=== PATIENT | female | born 1950 | race Caucasian/White ===

== ENCOUNTER 2019-11-18 10:28 | Outpatient (CLI) | payer MEDICARE, SELFPAY ==
--- NOTE | ~2019-11-18 | MM_ITS ---
EXAMINATION: MM screening [facility] w [facility] HISTORY: Screening TECHNIQUE: Craniocaudal and mediolateral oblique 3-D tomosynthesis images were obtained and synthetic 2-D images were generated. CAD analysis was submitted and interpreted. COMPARISON: Comparison to multiple prior studies sequentially, with oldest reviewed study dated 06/2013. BREAST PARENCHYMAL COMPOSITION: There are scattered areas of fibroglandular density. FINDINGS: There is no evidence of suspicious mass, calcification, or architectural distortion to sugg est malignancy in either breast. There has been no suspicious interval change. IMPRESSION: 1. No mammographic evidence of malignancy. 2. Recommend routine screening mammography in one year. BI-RADS Category 1: Negative Reviewed, dictated and finalized at location A.
== END 2019-11-18 10:29 | disposition home or self-care (01) ==
PROVIDERS: PCP Family Medicine; Visit Provider Obstetrics & Gynecology
DX: Z12.31 Encounter for screening mammogram for malignant neoplasm of breast (principal)
CPT/HCPCS: 77063; 77067

== ENCOUNTER 2020-11-23 10:48 | Outpatient (CLI) | payer MEDICARE, SELFPAY ==
--- NOTE | ~2020-11-23 | MM_ITS ---
EXAMINATION: MM screening [facility] BI w talita HISTORY: Screening mammogram TECHNIQUE: Craniocaudal and mediolateral oblique 3-D tomosynthesis images were obtained and synthetic 2-D images were generated. CAD analysis was submitted and interpreted. COMPARISON: 11/18/2019, 11/03/2018, 10/28/2017 BREAST PARENCHYMAL COMPOSITION: There are scattered areas of fibroglandular density. FINDINGS: There is no evidence of suspicious mass, calcification, or architectural distortion to sugg est malignancy in either breast. There has been no suspicious interval change. IMPRESSION: 1. No mammographic evidence of malignancy. 2. Recommend routine screening mammography in one year. BI-RADS Category 1: Negative Reviewed, dictated and finalized at location A.
== END 2020-11-23 10:49 | disposition home or self-care (01) ==
LOC: ANHIMG 10:51
PROVIDERS: PCP Family Medicine; Visit Provider Obstetrics & Gynecology
DX: Z12.31 Encounter for screening mammogram for malignant neoplasm of breast (principal)
CPT/HCPCS: 77063; 77067

== ENCOUNTER 2021-04-07 16:03 | Emergency (ER) | payer MEDICARE, SELFPAY ==
[2021-04-07 16:15] VITALS: BP 178/66; PULSE 97; RESP 16; TEMP 36.7; O2SAT 99
--- NOTE | 2021-04-07 17:53 | PC.NURSE ---
1753-pt at intake desk stating she is going to leave. Pt ambulated out of ED with steady gait. no distress noted.
== END 2021-04-07 18:54 | disposition left against medical advice (07) ==
LOC: ANHED 18:33
DX: M25.561 Pain in right knee (principal)
CPT/HCPCS: 99199

== ENCOUNTER 2021-04-17 10:33 | Outpatient (CLI) | payer MEDICARE, SELFPAY ==
--- NOTE | ~2021-04-17 | MR_ITS ---
EXAMINATION: MR knee RT wo con DATE: 04/17/2021 11:44 INDICATION: Right knee medial meniscal tear presenting with right knee pain TECHNIQUE: Magnetic resonance imaging (MRI) of the right knee was performed without intravenous contr ast. Sequences included coronal PD-weighted FSE, coronal PD-weighted FS FSE, sagittal T2-weighted FS E, sagittal PD-weighted FS FSE and axial PD weighted fat saturated FSE. COMPARISON: None. FINDINGS: Evaluation mildly limited by small amount of motion artifact or blurring most prominent on the sagitt al and axial sequences and to a lesser degree on the coronal sequences. This affects primarily the as sessment of the articular cartilage. Medial compartment: Medial extrusion of the medial meniscal body which appears thickened with increased intrasubstance si gnal which does not contact the articular surface to meet criteria for meniscal tear consistent with mucoid degeneration. Full-thickness radial tear/avulsion of the posterior root of the medial meniscus . Mild partial-thickness chondral ulceration along the lateral half of the anterior weightbearing med ial femoral condyle. Cartilage along the medial tibial plateau appears normal. Lateral compartment: Lateral meniscus is normal. Articular cartilage is normal. Patellofemoral compartment: There appears to be partial thickness cartilage loss along both the patella and trochlea without dege nerative subchondral changes. Assessment is however significantly limited by motion. Ligaments and tendons: Anterior and posterior cruciate ligaments are normal. The medial collateral ligament and fibular los ateral ligament complex are normal. The extensor mechanism is normal. The visualized medial and later al hamstring tendons as well as the iliotibial band are normal. Fluid: Small right knee joint effusion. No loose osteochondral bodies identified. Osseous/other: Mild edema at the posterior tibia centered around the avulsed posterior root of the medial meniscus. Marrow signal is otherwise normal. No fracture or pathologic marrow replacing process. IMPRESSION: 1. Full-thickness tear/avulsion near at the posterior root of the medial meniscus with mucoid degener ation at the more medial posterior horn and meniscal body. 2. Mild medial and patellofemoral osteoarthritis. 3. Small right knee joint effusion. Reviewed, dictated and finalized at location A. [employer] IMPRESSION: 1. Full-thickness tear/avulsion near at the posterior root of the medial menisc us with mucoid degeneration at the more medial posterior horn and meniscal body . 2. Mild medial and patellofemoral osteoarthritis. 3. Small right knee joint effusion.
== END 2021-04-17 10:34 | disposition home or self-care (01) ==
LOC: ANHIMG 10:39
PROVIDERS: PCP Family Medicine; Visit Provider Pediatrics Sports Medicine
DX: S83.241A Other tear of medial meniscus, current injury, right knee, initial encounter (principal); X58.XXXA Exposure to other specified factors, initial encounter; M17.11 Unilateral primary osteoarthritis, right knee; M25.461 Effusion, right knee
CPT/HCPCS: 73721

== ENCOUNTER 2021-12-05 15:47 | Outpatient (CLI) | payer MEDICARE, SELFPAY ==
--- NOTE | ~2021-12-05 | MM_ITS ---
EXAMINATION: MM screening [facility] BI w talita HISTORY: Screening mammogram TECHNIQUE: Craniocaudal and mediolateral oblique 3-D tomosynthesis images were obtained and synthetic 2-D images were generated. CAD analysis was submitted and interpreted. COMPARISON: 11/23/2020, 11/18/2019, 11/03/2018 BREAST PARENCHYMAL COMPOSITION: There are scattered areas of fibroglandular density. FINDINGS: There is no suspicious mass, calcification, or architectural distortion to suggest malignan cy in either breast. There has been no suspicious interval change. IMPRESSION: 1. No mammographic evidence of malignancy. 2. Recommend routine screening mammography in one year. BI-RADS Category 1: Negative Reviewed, dictated and finalized at location A.
== END 2021-12-05 15:48 | disposition home or self-care (01) ==
PROVIDERS: PCP Family Medicine; Visit Provider Obstetrics & Gynecology
DX: Z12.31 Encounter for screening mammogram for malignant neoplasm of breast (principal)
CPT/HCPCS: 77063; 77067

== ENCOUNTER 2022-12-26 13:35 | Outpatient (CLI) | payer MEDICARE, SELFPAY ==
--- NOTE | ~2022-12-26 | MM_ITS ---
EXAMINATION: MM screening [facility] w [facility] HISTORY: Screening TECHNIQUE: Craniocaudal and mediolateral oblique 3-D tomosynthesis images were obtained and synthetic 2-D images were generated. CAD analysis was submitted and interpreted. COMPARISON: Comparison to multiple prior studies sequentially, with oldest reviewed study dated 10/22. BREAST PARENCHYMAL COMPOSITION: Breast composed of scattered areas of fibroglandular density FINDINGS: There is no evidence of suspicious mass, calcification, or architectural distortion to sugg est malignancy in either breast. There has been no suspicious interval change. IMPRESSION: 1. No mammographic evidence of malignancy. 2. Recommend routine screening mammography in one year. BI-RADS Category 1: Negative Reviewed, dictated and finalized at location A.
== END 2022-12-26 13:36 | disposition home or self-care (01) ==
LOC: ANHIMG 13:38
PROVIDERS: PCP Family Medicine; Visit Provider Obstetrics & Gynecology
DX: Z12.31 Encounter for screening mammogram for malignant neoplasm of breast (principal)
CPT/HCPCS: 77063; 77067

== ENCOUNTER 2023-12-30 13:56 | Outpatient (CLI) | payer MEDICARE, SELFPAY | END 2023-12-30 13:57 | disposition home or self-care (01) | LOC: ANHAUDIO 13:57 | PROVIDERS: PCP Internal Medicine; Visit Provider Otolaryngology | DX: H90.42 Sensorineural hearing loss, unilateral, left ear, with unrestricted hearing on the contralateral side (principal); H93.8X2 Other specified disorders of left ear | CPT/HCPCS: 92557; 92567 ==

== ENCOUNTER 2024-01-07 15:37 | Outpatient (CLI) | payer MEDICARE, SELFPAY ==
--- NOTE | ~2024-01-07 | MM_ITS ---
EXAMINATION: MM screening [facility] w [facility] HISTORY: Screening TECHNIQUE: Craniocaudal and mediolateral oblique 3-D tomosynthesis images were obtained and synthetic 2-D images were generated. CAD analysis was submitted and interpreted. COMPARISON: Comparison to multiple prior studies sequentially, with oldest reviewed study dated 10/28. BREAST PARENCHYMAL COMPOSITION: Not dense: There are scattered areas of fibroglandular density. FINDINGS: There is no evidence of suspicious mass, calcification, or architectural distortion to sugg est malignancy in either breast. There has been no suspicious interval change. IMPRESSION: 1. No mammographic evidence of malignancy. 2. Recommend routine screening mammography in one year. BI-RADS Category 1: Negative Reviewed, dictated and finalized at location B.
== END 2024-01-07 15:38 | disposition home or self-care (01) ==
LOC: ANHIMG 15:38
PROVIDERS: PCP Internal Medicine; Visit Provider Obstetrics & Gynecology
DX: Z12.31 Encounter for screening mammogram for malignant neoplasm of breast (principal)
CPT/HCPCS: 77063; 77067

== ENCOUNTER 2025-01-30 13:58 | Outpatient (CLI) | payer MEDICARE, SELFPAY ==
--- NOTE | ~2025-01-30 | MM_ITS ---
EXAMINATION: MM screening [facility] BI w [place] HISTORY: Screening TECHNIQUE: Craniocaudal and mediolateral oblique 3-D tomosynthesis images were obtained and synthetic 2-D images were generated. CAD analysis was submitted and interpreted. COMPARISON: Comparison to multiple prior studies sequentially, with oldest reviewed study dated 11/03/2018. BREAST PARENCHYMAL COMPOSITION: Not dense: There are scattered areas of fibroglandular density. FINDINGS: There is no evidence of suspicious mass, calcification, or architectural distortion to suggest malignancy in either breast. There has been no suspicious interval change. IMPRESSION: 1. No mammographic evidence of malignancy. 2. Recommend routine screening mammography in one year. BI-RADS Category 1: Negative Reviewed, dictated and finalized at location B.
--- OUTSIDE RECORDS SUMMARY | 2025-01-30 15:42 | XMS_ITS | Data Portability ---
Author Organization [employer], [facility] [facility] Address [address] [address] Assessment No assessment recorded. Plan of Treatment Reminders Order Date Submit Date Provider Last Modified By Organization Details Last Modified Time Details Appointments None recorded. Lab None recorded. Referral None recorded. Procedures None recorded. Surgeries None recorded. Imaging XR, hip, bilateral - rm 16 2024 025 ksavides Not available 5 16:43:54 Medication Orders None recorded. Patient TargetsNo targets recorded. Patient InstructionsNo instructions recorded. Reason for Referral None Reported. Problems No Known Problems Medical Equipment None Reported. Allergies Allergen ID Allergen Name Allergen Category Reaction Reaction Severity Criticality Documentation Date Start Date Code Code System Note Provider Name and Address Organization Details Recorded Time 79630 Product containin g penicilli n (product) medicatio n Not available Not available Not available 02/20/2021 91589 8001 SNOMED Meghan Jane anuj [employer] [facility] 1 12:41:21 80772 hydrocodo ne Not available nausea moderate Not available 04/23/2021 5489 RxNorm Jean leslie [employer] [facility] 2 09:27:39 Medications Name Sig Start Date Stop Date Status Note LastModified by Organization Details LastModified Time latanoprost 0.005 % eye drops INSTILL 1 DROP IN BOTH EYES AT BEDTIME active Not Available Not Available No t Available azithromyci n 250 mg tablet take 2 tablets by mouth TODAY then take 1 tablet DAILY FOR 4 DAYS 10/21 completed Not Available Not Available Not Available ondansetron HCl 4 mg tablet TAKE 1 TABLET BY MOUTH EVERY 4 TO 6 HOURS NEEDED FOR NAUSEA WITH PAIN MEDS active Not Available Not Available No t Available hydrocodone 10 mg-acetamin ophen 325 mg tablet TAKE 1 TABLET BY MOUTH EVERY 6 HOURS 10/21 completed Not Available Not Available Not Available tramadol 50 mg tablet TAKE 1 TABLET BY MOUTH EVERY 4 TO 6 HOURS NEEDED active Not Available Not Available No t Available acetaminoph en 500 mg tablet take 1 tablet by mouth four times a day if needed for pain for 7 days 10/21 completed Not Available Not Available Not Available triamcinolo ne acetonide 0.1 % topical cream 10/21 completed Not Available Not Available Not Available diclofenac sodium 75 mg tablet,vero yed release TAKE 1 TABLET BY MOUTH TWICE DAILY 10/21 completed Not Available Not Available Not Available estradiol 0.01% (0.1 mg/gram) vaginal cream INSERT 1/2 GRAM INTO VAGINA THREE TIMES A WEEK active Not Available Not Available No t Available methylpredn isolone 4 mg tablets in a dose pack FOLLOW PACKAGE DIRECTION S active Not Available Not Available No t Available cholecalcif brunilda (vit D3) 1,000 unit-vitami n K2 (MK4) 100 mcg tablet Taking 6000IU daily. 10/21 completed Not Available Not Available Not Available Vitals Date Recorded Body height Body mass index (BMI) Body weight Heart rate Systolic And Diastolic Provider Name and Address Organization Details Last Updated DateTime 06/18/2021 147.32 cm 27.2 kg/m2 22946.01 g 109 /min 131/93 mm[Hg] [facility] [facility] 06/18/2021 12:11:05 Date Recorded Heart rate Systolic And Diastolic Provider Name and Address Organization Details Last Updated DateTime 07/15/2022 99 /min 163/70 mm[Hg] [facility] 07/15/2022 12:06:14 Date Recorded Body height Body mass index (BMI) Body weight Heart rate Systolic And Diastolic Provider Name and Address Organization Details Last Updated DateTime 09/03/2022 147.32 cm 27.2 kg/m2 08144.01 g 94 /min 150/82 mm[Hg] Meghan Jane [employer] [facility] [facility], [facility] 09/03/2022 14:45:54 Date Recorded Body height Heart rate Body mass index (BMI) Body weight Systolic And Diastolic Provider Name and Address Organization Details Last Updated DateTime 10/21/2022 147.32 cm 82 /min 27.2 kg/m2 09183.01 g 147/72 mm[Hg] Carlos Mares [employer] [facility] [facility], [facility] 10/21/2022 15:15:24 Social History Question Answer Notes LastModified by Organizat ion Details LastModified Time Tobacco Smoking Status Never Smoker Carlos Mares anuj [facility], [facility] 10/21/2022 15:17:28 What Is Your Relationship Status? Information not available 10/21/2022 Sex: Unknown Functional Status None recorded. Mental Status None recorded. Family History Relationship Description Onset Age of this Age Resolved Age Notes LastModified by Organization Details LastModified Time Mother Arthritis Not available 10/21/2022 15:18:12 Medical History Condition Response Coronary Artery Disease N HIV or AIDS N Other Cancer N Gout N Kidney Stones N Hyperthyroidism N Breast Cancer N Hernia N Head Trauma/Injury N Lung Cancer N Blood Clots N COPD N Depression N Lung Disease N Hypothyroidism N Pacemaker N Parkinson's N Anxiety Disorder N Multiple Sprains N Arthritis Y Alcohol / Substance Abuse N Kidney Cancer N Cancer N Stroke N Melanoma N Cliff Danlos Syndrome (EDS) N Neck Injury N Leg or Foot Ulcers N High Cholesterol N Skin Cancer N Liver Disease N Rheumatoid Arthritis N Headaches N Fibromyalgia N Concussion N Kidney Disease N Heart Problems N Scoliosis N Chronic use of Pain Medication N Prostate Cancer N Migraines N Thyroid Problems Y Alzheimers N DVT N Autoimmune Disorder N Anemia N Multiple Sclerosis N Tendon Tear N Ulcers N Heart Attack ([place]) N Osteopenia N Diabetes N Bleeding Disorder N Seizures/Epilepsy N Cardiac Stent N Tuberculosis N A-FIB N Lymphoma N Urinary Tract Infection N Back Problems N Diverticulitis N Dementia N Asthma N Lupus N Peripheral Vascular Disease N Sleep Apnea N Sleep Disorder N GERD/Reflux N Hepatitis N Aneurysm N Thyroid Cancer N Heart Disease N Pulmonary Embolism N Hypertension N Osteoporosis N Gynecological HistoryNo gynecological history recorded. Obstetrics History GPAL:G 0 P 0 0 0 0 Past Encounters Encounter ID Performer Location Encounter Start Date Encounter Closed Date Diagnosis/Indication Diagnosis SNOMED-CT Code Diagnosis ICD10 Code Diagnosis IMO Codes Diagnosis Note [id number] Juan Tovar MD [facility] [address] [place] [address] 02/20/2021 12:09:10 02/20/2021 14:50:45 Knee pain 47316410 M25.569 [id number] Juan Tovar MD [facility] [address] [facility] [address] [place] [address] 04/03/2021 14:17:59 04/03/2021 16:37:49 [id number] Juan Tovar MD [facility] [address] [facility] [address] [place] [address] 06/18/2021 11:53:18 06/18/2021 14:42:04 [id number] ATILIO GARCIA PA-C [facility] [address] [facility] [address] [place] [address] 07/15/2022 11:45:11 07/15/2022 16:12:50 [id number] Juan Tovar MD [facility] [address] [facility] [address] [place] [address] 09/03/2022 14:37:19 09/03/2022 16:11:30 [id number] Juan Tovar MD [facility] [address] [facility] [address] [place] [address] 10/21/2022 14:59:25 10/21/2022 16:38:03 [id number] ATILIO GARCIA PA-C [facility] [address] [facility] [address] [place] [address] 10/19/2024 13:57:53 10/19/2024 16:43:54 Pain of hip region 65883795 M25.551 M25.552 [id number] Health Concerns Section Related Observation LastModified by Organization Detai ls LastModified Time None Recorded Concern Status LastModified by Organization Details LastModified Time None Recorded Advance Directives Directive None Recorded Payers Insurance Date Sequence Insurance Name Policy Number Policy Tucker Covered Member ID Tucker Member ID Guarantor Name 12/11/2024 2 [place] [id number] Miladys A Tabatha [id number] Miladys Tabatha 10/19/2024 2 [place] Miladys Tabatha [id number] Miladys Tabatha 12/11/2024 1 [place] Miladys A Tabatha [id number] Miladys Tabatha OBGyn Episode No OBEpisode recorded.
--- OUTSIDE RECORDS SUMMARY | 2025-01-30 15:42 | XMS_ITS | Clinical Summary ---
Author Organization [facility] Address [address] [place] [address] Care Team Providers Care Continuity Clerk Name Role Phone No, Physician Primary Care Provider [phone] Allergies Active Allergy Reactions Criticality Noted Date Comments Penicillins Rash Medium 10/26/2019 Medications bimatoprost (LUMIGAN) 0.01 % ophthalmic drops 1 drop nightly Active Active Problems No known active problems Surgical History Surgery Date Site/Laterality Comments SECTION Medical History Medical History Date Comments Thyroid disease Family History Medical History Relation Name Comments Alcohol abuse Other Arthritis Other Relation Name Status Comments Other Social History Tobacco Use Types Packs/Day Years Used Date Smoking Tobacco: Former Smokeless Tobacco: Former Personal Safety Answer Date Recorded Getting School Help Needed Not on file 06/19 Comments Unknown Sex and Gender Information Value Date Recorded Sex Assigned at Not on file Legal Sex Female 4:47 PM COUNCILPERSON Gender Identity Not on file Sexual Orientation Not on file Obstetrics History Last Filed Vital Signs Vital Sign Reading Time Taken Comments Blood Pressure 153/79 10/26/2019 10:59 AM CDT Pulse 82 10/26/2019 10:59 AM CDT Temperature 36.8 C (98.3 F) 10/26/2019 10:59 AM CDT Respiratory Rate - - Oxygen Saturation - - Inhaled Oxygen Concentration - - Weight 65.8 kg (145 lb) 10/26/2019 10:59 AM CDT Height 147.3 cm (4' 10) 10/26/2019 10:59 AM CDT Body Mass Index 30.31 10/26/2019 10:59 AM CDT Plan of Treatment Not on file Insurance MEDICARE [facility] Care Teams Continuity Clerk Relationship Specialty Start Date End Date No, Physician PCP - General 10/18/19
== END 2025-01-30 13:59 | disposition home or self-care (01) ==
PROVIDERS: PCP Internal Medicine; Visit Provider Obstetrics & Gynecology
DX: Z12.31 Encounter for screening mammogram for malignant neoplasm of breast (principal)
CPT/HCPCS: 77063; 77067